=== PATIENT | female | born 1935 | race Caucasian/White ===

== ENCOUNTER 2020-04-14 13:38 | Inpatient (IN) | payer OTHER ==
[~2020-04-14] VITALS: Ht 152.4 cm; Wt 54.4 kg
[2020-04-14] MEDS ORDERED: FORTAMET500 MG (14:05)
[2020-04-14] MEDS ORDERED: JANUVIA25 MG (14:05)
--- NOTE | 2020-04-14 14:06 | NUR ---
SE RECIBE PTE ALERTA Y ORIENTADA X3,REFIERE TENER INFECCION DE ORINA ,TIENE FIEBRE ,DOLOR EN EL COSTADO DERECHO LEVE.
[2020-04-14] MEDS ORDERED: LEVOTHYROXINE25 MCG (14:07)
--- NOTE | 2020-04-14 15:14 | NUR ---
PACIENTE ALERTA Y ORIENTADA POR SERGE ESFERAS. SE ORIENTA A PACEINTE SOBRE PROCEDIMIENTO Y TX, REFIERE ENTENDER. SE EXTRAE MUESTRAS DE LABORATORIO CON MEDIDAS ASEPTICAS Y SE ADMINISTRA MEDICAMENTOS NICK ORDEN MEDICA.
== END 2020-04-21 12:08 | disposition home health service (06) | DRG 690 ==
LOC: ER 13:38 → MEDI 17:50
PROVIDERS: ADMIT Internal Medicine; ATTEND Internal Medicine
PROC: 02HV33Z Insertion of Infusion Device into Superior Vena Cava, Percutaneous Approach (ICD-10-PCS; principal; 2020-04-18)
PROC: 8E0ZXY6 Isolation (ICD-10-PCS; 2020-04-18)
DX: N39.0 Urinary tract infection, site not specified (principal); R30.0 Dysuria; R50.9 Fever, unspecified; K21.9 Gastro-esophageal reflux disease without esophagitis; E03.8 Other specified hypothyroidism; I10 Essential (primary) hypertension; B96.29 Other Escherichia coli [E. coli] as the cause of diseases classified elsewhere; E11.65 Type 2 diabetes mellitus with hyperglycemia; Z20.828 Contact with and (suspected) exposure to other viral communicable diseases; Z79.4 Long term (current) use of insulin

== ENCOUNTER 2020-12-17 16:25 | Emergency (ER) | payer OTHER ==
[~2020-12-17] VITALS: Ht 152.4 cm; Wt 49.9 kg
[~2020-12-17 16:25] MED LIST: FORTAMET500 MG; JANUVIA25 MG; LEVOTHYROXINE25 MCG
[2020-12-17] MEDS ORDERED: LOSARTAN POTAS100 MG PO (17:11)
[2020-12-17] MEDS ORDERED: MACRODANTIN100 MG PO (19:18)
== END 2020-12-17 21:27 | disposition home or self-care (01) ==
LOC: ER 16:25
DX: N39.0 Urinary tract infection, site not specified (principal); R31.29 Other microscopic hematuria; R50.9 Fever, unspecified; R53.1 Weakness

== ENCOUNTER → 2020-12-18 | Emergency (ER) | payer OTHER ==
[~2020-12-18] VITALS: Ht 154.9 cm; Wt 49.4 kg
[~2020-12-18] MED LIST changes: +LOSARTAN POTAS100 MG PO; +MACRODANTIN100 MG PO
== END | disposition home or self-care (01) ==
LOC: ER 05:25
DX: N39.0 Urinary tract infection, site not specified (principal); R31.29 Other microscopic hematuria

== ENCOUNTER 2023-04-17 12:21 | Emergency (ER) | payer OTHER ==
[~2023-04-17] VITALS: Ht 152.4 cm; Wt 50.8 kg
[2023-04-17] MEDS ORDERED: LEVO-T50 MCG PO (13:14)
[2023-04-17] MEDS ORDERED: SIMVASTATIN40 MG PO (13:14)
[2023-04-17] MEDS ORDERED: GABAPENTIN300 M2 PO (13:15)
[2023-04-17] MEDS ORDERED: FAMOTIDINE40 MG PO (13:15)
[2023-04-17] MEDS ORDERED: RESTORIL15 MG PO (13:15)
[2023-04-17] MEDS ORDERED: OMEPRAZOLE20 MG PO (13:15)
[2023-04-17] MEDS ORDERED: LOPRESSOR25 MG PO (13:17)
[2023-04-17] MEDS ORDERED: MACRODANTIN100 M1 PO (15:45)
== END 2023-04-17 15:48 | disposition home or self-care (01) ==
LOC: ER 12:21
DX: R30.0 Dysuria (principal); E11.9 Type 2 diabetes mellitus without complications; Z79.84 Long term (current) use of oral hypoglycemic drugs; I10 Essential (primary) hypertension; E78.49 Other hyperlipidemia